=== PATIENT | male | born 1990 | race Caucasian/White ===

== ENCOUNTER 2024-10-12 04:27 | Emergency (ER) | payer OTHER, SELFPAY ==
--- NOTE | ~2024-10-12 | CT_ITS ---
Non-contrast CT scan of the Abdomen and Pelvis Clinical indication: Right flank pain Technique: 2.5 mm axial scans were obtained through the abdomen and pelvis without intravenous or or al contrast. Dose reduction technique was used on this scan by utilizing automated exposure control a nd iterative reconstruction technique. The dose-length product (DLP) was 221.13 mGy-cm. Findings: Images through the lung bases reveal no abnormalities. Punctate nonobstructing right renal stone present. There is a 2 mm stone probably at the right UVJ, w ith minimal right hydroureteronephrosis. No left ureteral stone or left hydronephrosis. The liver, spleen, pancreas, gallbladder, and adrenals appear normal. There is no aortic aneurysm. There is no evidence of bowel obstruction. Normal appendix. Images through the pelvis were performed. There is no evidence of ascites or lymphadenopathy. Urinary bladder otherwise unremarkable. No pelvic mass seen. No ascites. Impression: 2 mm right UVJ stone with minimal right hydroureteronephrosis. Additional punctate nonobstructing right renal stone. Reviewed, dictated and finalized at location . Impression: 2 mm right UVJ stone with minimal right hydroureteronephrosis. Additional punctate nonobstructing right renal stone.
[2024-10-12 04:30] VITALS: BP 133/96; PULSE 55; RESP 20; TEMP 36.4; O2SAT 100
[2024-10-12 05:01] LABS: Basophils Absolute Auto 0.1 K/mm3 (0.0-0.1); Basophils Percent Auto 1.4 % (0.2-1.2); Eosinophils Absolute Auto 0.5 K/mm3 (0-0.3); Eosinophils Percent Auto 5.8 % (0-4.4); Hematocrit 43.8 % (42.0-52.0); Hemoglobin 14.7 g/dL (14.0-18.0); Immature Granulocyte Absolute 0.02 K/mm3 (0.00-0.031); Immature Granulocyte Percent A 0.2 % (0-0.5); Lymphocytes Absolute Auto 4.38 K/mm3 (0.9-3.2); Lymphocytes Percent Auto 51.6 % (18.3-44.2); Mean Corpuscular HGB Conc 33.6 g/dl (32-36); Mean Corpuscular Hemoglobin 28.9 pg (26-34); Mean Corpuscular Volume 86.1 fl (80-100); Mean Platelet Volume 9.3 fl (7.4-10.4); Monocytes Absolute Auto 0.9 K/mm3 (0.1-0.6); Monocytes Percent Auto 10.5 % (2.6-8.5); Neutrophils Absolute Auto 2.6 K/mm3 (1.3-6.7); Neutrophils Percent Auto 30.5 % (45.5-73.1); Platelet Count Result 340 k/mm3 (150-375); Red Blood Count 5.09 M/mm3 (4.6-6.20); Red Cell Distribution Width 12.9 % (11.5-14.5); White Blood Count 8.5 K/mm3 (4.5-10.0)
[2024-10-12] MEDS: ONDANSETRON INJ 4 MG/2 ML VIAL IV PUSH (05:03)
--- NOTE | 2024-10-12 05:03 | PC.NURSE ---
juan haywood zofran 4mg x 1 dose
--- NOTE | 2024-10-12 05:04 | PC.NURSE ---
pt actively vomiting into sink and pacing room in pain.
[2024-10-12 05:10] LABS: Alanine Aminotransferase 52 U/L (6-50); Albumin Level 4.8 g/dL (3.5-5.1); Alkaline Phosphatase 85 U/L (38-126); Anion Gap 14 mmol/L (4-12); Aspartate Amino Transferase 38 U/L (17-59); Bilirubin,Total 0.4 mg/dL (0.2-1.3); Blood Urea Nitrogen 13 mg/dL (9-20); Calcium 9.4 mg/dL (8.4-10.2); Carbon Dioxide 22 mmol/L (22-30); Chloride 104 mmol/L (98-107); Estimated CRCL calculation 105 ml/min; Estimated Glomerular Filt Rate > 60; Glucose 122 mg/dL (65-110); Lipase 68 U/L (23-300); Potassium 3.5 mmol/L (3.4-5.0); Sodium 140 mmol/L (137-145)
--- OUTSIDE RECORDS SUMMARY | 2024-10-12 05:23 | XMS_ITS | Clinical Summary ---
Author Organization [facility] Virtual Care Address [address] [place] [phone] Phone Care Team Providers Care Sas Etl Developer Name Role Phone No, Physician Primary Care Provider [phone] Immunizations Immunization Administration Dates Next Due Tdap 03/20/2021 Social History Tobacco Use Types Packs/Day Years Used Date Smoking Tobacco: Never Assessed Personal Safety Answer Date Recorded Getting School Help Needed Not on file 12/09 Sex and Gender Information Value Date Recorded Sex Assigned at Not on file Legal Sex Male 3:12 PM CDT Gender Identity Not on file Sexual Orientation Not on file Plan of Treatment Health Maintenance Due Date Last Done Comments Depression Screening 1992 Hepatitis C Screening 1992 Varicella Vaccines (1 of 2 - 13+ 2-dose series) 02/11/2005 Regular Well Visit/Exam 18-64 02/11/2010 Covid-19 Vaccine ( season) 2024 01/19/2021 Influenza Vaccine (Season Ended) 2025 05/27/2023, 05/16/2022 DTaP/Tdap/Td Vaccine (8 - Td or Tdap) 03/20/2031 03/20/2021, 11/28/2005, 02/24/1996, Additional history exists Hepatitis B Screening Completed 04/21/1997 , 02/24/1996, 11/12/1995 HPV Vaccines Aged Out No longer eligi ble based on patient's age to complete this topic Pneumococcal vaccine <65 Aged Out No longer eligible based on patient's age to complete this topic Insurance [employer] [facility] [employer] Address: [facility] [id number] [place] [address] [facility] [employer] Address: [facility] [id number] [place] [address] Care Teams Sas Etl Developer Relationship Specialty Start Date End Date No, Physician PCP - General 03/20/21
--- OUTSIDE RECORDS SUMMARY | 2024-10-12 05:23 | XMS_ITS | Referral Summary ---
Author Organization [facility] Virtual Care Address [address] [place] [phone] Phone Care Team Providers Care Tab Machine Operator Name Role Phone No, Physician Primary Care Provider [phone] Immunizations Immunization Administration Dates Next Due Tdap [...] Orientation Not on file Plan of Treatment Not on file Insurance [facility] [employer] Address: [facility] [id number] [place] [address] [employer] [facility] [employer] Address: [facility] [id number] [place] [address] Care Teams Tab Machine Operator Relationship Specialty Start Date End Date No, Physician PCP - General 03/20/21
--- OUTSIDE RECORDS SUMMARY | 2024-10-12 05:23 | XMS_ITS | Clinical Summary ---
Author Organization [facility] Address [address] [place] [id number] Care Team Providers Care Poultry Scalder Name Role Phone Devora Adams Dao FELIZ Primary Care Provider [phone] Allergies No known active allergies Medications No known medications Active Problems No known active problems Immunizations Name Administration Dates Next Due Dtap (Generic) 02/24/1996,12/07/1994,11/14/1993 ,05/12/1993,1992 Dtp (Generic) 02/24/1996,12/07/1994,11/14/1993 ,05/12/1993,1992 Hepatitis B Pediatric 04/21/1997,02/24/1996,01/1996 Hib (Generic) 12/07/1994,11/14/1993,05/12/1993 ,1992 MMR (MMRII) 02/24/1996,11/14/1993 Polio Opv (Generic) 02/21/1996,11/14/1993,1992,1992 Tdap (Generic) 03/20/2021,11/28/2005 Family History Medical History Relation Comments No Known Problems Brother No Known Problems Father Rheumatoid Arthritis Mother Relation Status Comments Brother Alive Daughter Alive Father Alive Mother Alive Social History Tobacco Use Types Packs/Day Years Used Date Smoking Tobacco: Former Cigarettes 1 3 0 01/11/2011 - 01/11/2014 Pipe Cigars Smokeless Tobacco: Never Alcohol Use Standard Drinks/Week Comments Yes 0 (1 standard drink = 0.6 oz pur e alcohol) once a week. Sex and Gender Information Value Date Recorded Sex Assigned at Not on file Legal Sex Male 6:29 PM CDT Gender Identity Not on file Sexual Orientation Not on file Last Filed Vital Signs Vital Sign Reading Time Taken Comments Blood Pressure 117/66 06/15/2022 10:07 AM FIRE PROTECTION EQUIPMENT TECHNICIAN Pulse 72 06/15/2022 10:07 AM FIRE PROTECTION EQUIPMENT TECHNICIAN Temperature 36.6 C (97.9 F) 06/15/2022 10:07 AM FIRE PROTECTION EQUIPMENT TECHNICIAN Respiratory Rate 12 06/15/2022 10:07 AM FIRE PROTECTION EQUIPMENT TECHNICIAN Oxygen Saturation 97% 06/15/2022 10:07 AM FIRE PROTECTION EQUIPMENT TECHNICIAN Inhaled Oxygen Concentration - - Weight 83 kg (183 lb) 06/15/2022 10:07 AM FIRE PROTECTION EQUIPMENT TECHNICIAN Height 172.7 cm (5' 8 ) 06/15/2022 10:07 AM FIRE PROTECTION EQUIPMENT TECHNICIAN Body Mass Index 27.83 06/15/2022 10:07 AM FIRE PROTECTION EQUIPMENT TECHNICIAN Plan of Treatment Health Maintenance Due Date Last Done Comments Annual Physical 02/11/1995 COVID-19 Vaccine ( season) 2024 DTaP, Tdap and Td Vaccines (8 - Td or Tdap) 03/20/2031 03/20/2021, 11/28/2005, 02/24/1996, Additional history exists Hepatitis B Vaccines Completed 04/21/1997, 02/24/1996, 11/12/1995 Hepatitis C Completed 01/31/2022 HPV Vaccines Aged Out No longer eligi ble based on patient's age to complete this topic Meningococcal B Vaccine Aged Out No l onger eligible based on patient's age to complete this topic Meningococcal Vaccine Aged Out No michelle edwar eligible based on patient's age to complete this topic Pneumococcal Vaccine: Pediatrics (0 to 5 Years) and At-Risk Patients (6 to 64 Years) Aged Out No longer eligible based on patient's age to complete this topic RSV Immunizations Under 20 Months Aged Out No longer eligible based on patient's age to complete this topic Procedures Procedure Name Priority Date/Time Associated Diagnosis Comments HEPATITIS C ANTIBODY Routine 01/31/2022 10:19 AM CDT Need for hepatitis C screening test from Last 3 Months or Most Recently Relevant to Health Maintenance Results * HEPATITIS C AB ([facility] ONLY) (01/31/2022 10:19 AM CDT) HEPATITIS C AB NON-REACTI VE NON-REACT ALEJANDRO 01/31/2022 7:07 PM CDT [facility] Comment: ANTIBODIES TO HCV NOT DETECTED. DOES NOT EXCLUDE THE POSSIBILITY OF EXPOSURE TO HCV. 01/31/2022 10:1 9 AM CDT Devora FELIZ LABORATORY Final Resul t [facility] [address] [place] [address], [id number] from Last 3 Months or Most Recently Relevant to Health Maintenance Insurance [employer] Care Teams Poultry Scalder Relationship Specialty Start Date End Date Devora Adams APNP [address] [place] [id number] PCP - General NURSE PRACTITIONER 01/25/22
--- OUTSIDE RECORDS SUMMARY | 2024-10-12 05:23 | XMS_ITS | Continuity of Care Document ---
Author Organization [facility] Address [address] [place] [address] [place] [address] Phone Care Team Providers Care Client Services Manager Name Role Phone Brody Olivo MD Unavailable Unavailable Advance Directives Directive Yes / No Effective Date File Name No Information Encounters Encounter Description Practice Location Reason(s) For Visit Diagnoses Date Provider Providers Copied on Encounter [facility], [address] [place], [id number], [place] tel:[phone] [facility] No Information Geovani Skinner. [address] [facility] [place], [id number], [place]. tel:[phone] Family History Family Member Type Diagnosis Age At Onset No Information Payers Payer name Insurance type Covered green party ID Authoriza tion(s) No Information Social History Type Description Quantity Date Captured Comments Sex Male Smoking Status No Information Chief Complaint And Reason For Visit No Information Plan Of Treatment Date Type Action Status No Information History Of Present Illness Encounter Date Complaint History Of Prese nt Illness No Information Instructions Date Instruction Additional Infor mation No Information Assessments Type Assessment Date No Information
--- OUTSIDE RECORDS SUMMARY | 2024-10-12 05:23 | XMS_ITS | Continuity of Care Document ---
Author Name [facility] Organization [facility] Care Team Providers Care Supervisor Ticket Sales Name Role Phone [facility] Unavailable Unavailable Encounters Combined list of: 1) Encounters from Department of Veterans Affairs facilities going backup to the last 18 months, not all [facility] inpatient encounters are included; 2) Encounters from the Department of Defense facilities going backup to 280 months. Location Location Details Encounter Type Encounter Number Reason For Visit Attending Provider ADM Date DC Date Status Disposition Source [facility] Outpatient Encounter [id number] 05/01 [facility]
--- NOTE | 2024-10-12 05:58 | ED.MALEGU ---
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 He has a history of kidney stones but which passed without complication (no prior stents/surgical intervention/etc). Has not seen a urologist. He was having difficulty urinating but has since been able to do so (but forgot to use the specimen cup). He has been nauseated and vomiting, non bloody. No fevers but chills. RN notes that he was pale and clammy initially and dry heaving/vomiting in the sink in the room. Zofran initially ordered before my assessment and at this time he is now resting comfortably wondering if there is an analgesic effect to Zofran because the pain is still there but dull at this time. No dysuria, hematuria. He has been having urgency but no frequency. Pain is much better but he describes it as radiating to his groin/penis. Related Data Allergies Allergy/AdvReac Type Severity Reaction Status Date / Time No Known Allergies Allergy Verified 10/12/24 04:28 [facility] Past Medical History Medical History History of renal stone Exam Narrative: GENERAL: Well-appearing, well-nourished, and in no acute distress. HEAD: Normocephalic, atraumatic. EYES: Non injected, non icteric ENT: Nares clear, no rhinorrhea or epistaxis. NECK: Supple. CHEST: Speaking in full sentences. No respiratory distress. HEART: Bradycardic rate and rhythm. . ABDOMEN: Soft, nondistended. EXTREMITIES: Normal range of motion. No lower extremity edema. SKIN: Warm, dry, no rash. NEURO: No focal deficits. Alert and oriented x3. PSYCH: Normal mood and affect. Course Vital Signs Vital signs: Vital Signs Temperature 97.6 F 10/12/24 04:30 Pulse Rate 55 L 10/12/24 04:30 Respiratory Rate 20 10/12/24 04:30 Blood Pressure 133/96 H 10/12/24 04:30 Pulse Oximetry 100 10/12/24 04:30 Oxygen Delivery Room Air 10/12/24 04:30 Temperature 97.6 F 10/12/24 04:30 Pulse Rate 54 L 10/12/24 06:35 Respiratory Rate 15 10/12/24 06:35 Blood Pressure 144/87 H 10/12/24 06:35 Pulse Oximetry 99 10/12/24 06:35 Oxygen Delivery Room Air 10/12/24 04:30 MDM - Male Genitourinary MDM Narrative Medical decision making narrative: Patient presents with right flank pain radiating to groin/penis and associated with nausea and vomiting. Presents with symptoms classically consistent with kidney/ureteral stone. In the emergency department he is afebrile with vital signs notable for mild bradycardia as well as elevated diastolic blood pressure. Normal renal function. Patient has a lot of abnormalities on his CBC differential however without anemia, thrombocytopenia, or leukocytosis. Urinalysis with hematuria. 2mm UVJ stone on imaging. Patient already experiencing some pain relief after Zofran (and what i expect was migration of the stone). Given the combination of meds and discussed expulsion therapy at home. He verifies understanding, has done this before. Provided a strainer and urology contact information for follow up. given return precautions. Discharged in stable condition. Differential Diagnosis Differential diagnosis: Likely urinary tract infection, acute retention of urine and other (kidney stone/renal colic/ureteral stone; considered infected stone; diverticultis; appendicitis) Lab Data Attestation: I reviewed the patient's lab results. 10/12/24 04:45 10/12/24 04:45 Labs: Lab Results 10/12/24 10/12/24 Range/Units 04:45 06:11 WBC 8.5 (4.5-10.0) K/mm3 RBC 5.09 (4.6-6.20) M/mm3 Hgb 14.7 (14.0-18.0) g/dL Hct 43.8 (42.0-52.0) % MCV 86.1 (80-100) fl MCH 28.9 (26-34) pg MCHC 33.6 (32-36) g/dl RDW 12.9 (11.5-14.5) % Plt Count 340 (150-375) k/mm3 MPV 9.3 (7.4-10.4) fl Immature Gran % (Auto) 0.2 (0-0.5) % Neut % (Auto) 30.5 L (45.5-73.1) % Lymph % (Auto) 51.6 H (18.3-44.2) % Citrus % (Auto) 10.5 H (2.6-8.5) % Eos % (Auto) 5.8 H (0-4.4) % Baso % (Auto) 1.4 H (0.2-1.2) % Lymph # (Auto) 4.38 H (0.9-3.2) K/mm3 Citrus # (Auto) 0.9 H (0.1-0.6) K/mm3 Eos # (Auto) 0.5 H (0-0.3) K/mm3 Baso # (Auto) 0.1 (0.0-0.1) K/mm3 Abs Immat Gran (auto) 0.02 (0.00-0.031) K/mm3 Absolute Neuts (auto) 2.6 (1.3-6.7) K/mm3 Absolute Nucleated RBC 0.000 (0.0-0.012) K/mm3 Nucleated RBC % 0.0 (0.0-0.2) % Sodium 140 (137-145) mmol/L Potassium 3.5 (3.4-5.0) mmol/L Chloride 104 (98-107) mmol/L Carbon Dioxide 22 (22-30) mmol/L Anion Gap 14 H (4-12) mmol/L BUN 13 (9-20) mg/dL Creatinine 0.92 (0.7-1.3) mg/dL Estim Creat Clear Calc 105 ml/min Estimated GFR > 60 (59 - ) Glucose 122 H (65-110) mg/dL Calcium 9.4 (8.4-10.2) mg/dL Total Bilirubin 0.4 (0.2-1.3) mg/dL AST 38 (17-59) U/L ALT 52 H (6-50) U/L Alkaline Phosphatase 85 (38-126) U/L Total Protein 8.0 (6.3-8.2) g/dL Albumin 4.8 (3.5-5.1) g/dL Lipase 68 (23-300) U/L Urine Color Dark yellow (Yellow) Urine Appearance Clear (Clear) Urine pH 5.0 (5.0-9.0) Ur Specific Wilber 1.031 (1.001-1.035) Urine Protein Trace (Negative) mg/dL Urine Glucose (UA) Negative (Negative) mg/dL Urine Ketones Negative (Negative) mg/dL Ur Blood (Man) 3+ H (Negative) Urine Nitrate Negative (Negative) Urine Bilirubin Negative (Negative) Urine Urobilinogen 1.0 (<2.0) mg/dL Leukocyte Esterase Rfl Negative (Negative) ARTHUR/UL Urine RBC 21-50 H (0-2) /hpf Urine WBC 0-5 (0-3) /hpf Ur Squamous Epith Cells None seen (Few) /hpf Urine Bacteria None seen /hpf Urine Casts 0-2 Imaging Data Radiologist's impression: Impressions Abdomen/Pelvis CT 10/12/24 06:29 Impression: 2 mm right UVJ stone with minimal right hydroureteronephrosis. Additional punctate nonobstructing right renal stone. Discharge Plan Discharge Clinical Impression: Calculus of ureterovesical junction (UVJ), Hydroureteronephrosis, Renal calculus, right Patient Disposition: Home Condition: Stable Instructions: Antibiotic Form, Kidney Stones (ED), Renal Colic (ED), How to Strain Your Urine (ED), Ureteral Stones (ED) Additional Instructions: You do have a 2 mm stone. This should pass spontaneously although the combination of medications prescribed can help. Strain your urine and follow-up with the urologist listed below. Return to the emergency department with any new or worsening symptoms such as intractable pain, intractable nausea or vomiting, fever greater than 100.4? F, inability to urinate, etc. Patient Language: Portuguese Prescriptions: New tamsulosin [Flomax] 0.4 mg capsule 0.4 mg PO HS Qty: 14 0RF ibuprofen 600 mg tablet 600 mg PO TID PRN (Reason: pain) Qty: 30 0RF ondansetron 4 mg tablet,disintegrating 4 mg PO Q8H PRN (Reason: nausea and vomiting) Qty: 7 0RF Follow-up/Referrals: Sacha Maldonado MD [Physician] - (Urology) UNKNOWN,DOCTOR [Primary Care Provider] - Stand Alone Forms: Work/School Release IP Time of Disposition: 06:40
[2024-10-12] MEDS: MORPHINE SULFATE (*CRX) 4 MG/ML INJ IV PUSH (06:10)
[2024-10-12 06:20] LABS: Add Urine Microscopic? YES; Appearance Urine Clear (Clear); Bacteria Urine None Seen /hpf; Bilirubin Urine Negative (Negative); Blood Urine 3+ (Negative); Color Urine Dark Yellow (Yellow); Glucose Urine UA Negative (Negative); Ketones Urine Negative (Negative); Leukocyte Esterase Ur Negative LEU/UL (Negative); Nitrate Urine Negative (Negative); Non Pathogenic Casts 0-2; Protein Urine Trace mg/dL (Negative); RBC Urine 21-50 /hpf (0-2); Specific Grav Ur 1.031 (1.001-1.035); Squamous Epithelial Cell Urine None Seen /hpf (Few); WBC Urine 0-5 /hpf (0-3)
[2024-10-12 06:35] VITALS: BP 144/87; PULSE 54; RESP 15; O2SAT 99
[2024-10-12] MEDS: KETOROLAC 15 MG/ML VIAL (*BKC) IV PUSH (06:45)
[2024-10-12] MEDS: TAMSULOSIN HCL 0.4 MG CAPSULE PO (06:45)
== END 2024-10-12 07:00 | disposition home or self-care (01) ==
PROVIDERS: Emergency Provider Student in an Organized Health Care Education/Training Program
DX: N13.2 Hydronephrosis with renal and ureteral calculous obstruction (principal); Z87.442 Personal history of urinary calculi
CPT/HCPCS: 36415; 74176; 80053; 81001; 83690; 85025; 96374; 96375; 99284; A9270; J1885; J2270; J2405